=== PATIENT | female | born 1995 | race African-American/Black ===

== ENCOUNTER 2021-02-15 13:28 | Emergency (ER) | payer BC, SELFPAY ==
[2021-02-15 13:38] VITALS: BP 147/76; PULSE 90; RESP 20; TEMP 37.1; O2SAT 100
--- NOTE | 2021-02-15 13:50 | ED.GENADULT ---
HPI - General Adult General Chief complaint: Unspecified Stated complaint: poss nose broke Time Seen by Provider: 02/15/21 13:50 Source: patient Mode of arrival: ambulatory Limitations: no limitations History of Present Illness HPI narrative: 25-year-old female patient presents to the [facility] with complaints of a nasal bone injury x5 days ago. Patient states that she got hit by a door about 5 days ago and states that she initially had some bleeding from the nose. Patient states she has been putting ice on the bridge of the nose as well as taking Tylenol and ibuprofen for the pain. Patient states she continues to have swelling. Patient states she also has a injury to her middle upper lip that she has been cleaning with hydrogen peroxide and putting antibiotic ointment on it. Related Data Home Medications Medication Instructions Recorded Confirmed No Home Medications 02/15/21 02/15/21 Allergies Allergy/AdvReac Type Severity Reaction Status Date / Time Penicillins Allergy Rash Verified 02/15/21 14:02 Review of Systems Review of Systems: Narrative: CONSTITUTIONAL: Denies fever, chills, or sweats. EYES: Denies visual changes, redness, or discharge. ENT: Denies rhinorrhea, congestion, sore throat, or otalgia. Positive nasal bone trauma CARDIOVASCULAR: Denies chest pain, palpitations, or edema. RESPIRATORY: Denies cough or dyspnea. GASTROINTESTINAL: Denies abdominal pain, nausea, vomiting, or diarrhea. GENITOURINARY: Denies dysuria or hematuria. SKIN: Denies rash or itching. MUSCULOSKELETAL: Denies back pain, joint pain, or myalgia. NEUROLOGIC: Denies headache, numbness, or weakness. PSYCHIATRIC: Denies anxiety or depression. [facility] Past Medical History Medical History (Updated 02/15/21 @ 14:01 by ROSEMARY Antoine) No significant past medical history Comments At the time of my signature I agree with nursing past medical history, surgical, social, and family history. There is no relevant family history pertinent to the presenting complaint. Exam Narrative: Exam Narrative: GENERAL: Well-appearing, well-nourished, and in no acute distress. HEAD: Normocephalic, atraumatic. EYES: PERRLA and EOMI. ENT: Patient is able to breathe out of both naris. There is no hematoma present. There is a minor abrasion noted to the bridge of the nose that appears to be scabbed over and healing. No obvious septal deviation. Patient does have some tenderness noted to the bridge of the nose with some swelling present, no rhinorrhea or epistaxis. Mucous membranes moist. Patient does have a scabbed over abrasion noted to the middle of the upper lip. There is no warmth or drainage noted at this time. NECK: Supple. No lymphadenopathy CHEST: Clear to auscultation. No respiratory distress. HEART: Regular rate and rhythm. No murmur heard. Normal peripheral pulses. ABDOMEN: Soft, nontender, nondistended, normal active bowel sounds. EXTREMITIES: Normal range of motion. No edema. SKIN: Warm, dry, no rash. NEURO: No focal deficits. Alert and oriented x3. Course Vital Signs Vital signs: Vital Signs Temperature 37.1 C 02/15/21 13:38 Pulse Rate 90 02/15/21 13:38 Respiratory Rate 20 02/15/21 13:38 Blood Pressure 147/76 H 02/15/21 13:38 Pulse Oximetry 100 02/15/21 13:38 Temperature 37.1 C 02/15/21 13:38 Pulse Rate 90 02/15/21 13:38 Respiratory Rate 20 02/15/21 13:38 Blood Pressure 147/76 H 02/15/21 13:38 Pulse Oximetry 100 02/15/21 13:38 The patient has been informed that they may have pre-hypertension or Hypertension based on a BP reading in the department. I recommend that the patient call the primary care provider listed on their discharge instructions or a physician of their choice this week to arrange follow up for further evaluation of possible pre-hypertension or Hypertension Medical Decision Making Differential Diagnosis Differential Diagnosis: Differential diagnosis: Contusion of nose, nasal
[2021-02-15 13:53] VITALS: BP 147/76; PULSE 90; RESP 20; TEMP 37.1; O2SAT 100
== END 2021-02-15 14:05 | disposition home or self-care (01) ==
PROVIDERS: Emergency Provider Nurse Practitioner Family
DX: S09.92XA Unspecified injury of nose, initial encounter (principal); W22.8XXA Striking against or struck by other objects, initial encounter
CPT/HCPCS: 99202; G0463

== ENCOUNTER 2021-04-27 12:19 | Emergency (ER) | payer BC, SELFPAY ==
[2021-04-27 12:28] VITALS: BP 117/66; PULSE 66; RESP 14; TEMP 36.8; O2SAT 99
--- NOTE | 2021-04-27 12:47 | ED.URI ---
HPI - URI/Sore Throat General Chief Complaint: Upper Respiratory Infection Stated Complaint: Possible sinus and Ear infection Time Seen by Provider: 04/27/21 12:47 Source: patient, RN notes reviewed and old records reviewed Mode of arrival: ambulatory Limitations: no limitations History of Present Illness HPI Narrative: 25 year old female who presents to [facility] with 2 day history of right ear pain, sneezing, nasal congestion stuffiness and some clear nasal drainage with post nasal drainage. Patient states that ears have pressure and decrease in hearing. She reports that she put sweet oil in her right ear, and she has taken some Tussin for her nasal symptoms. Patient denies any cough, or fevers, denies any acute sore throat but states that it does feel raspy from all her drainage. Patient denies any headaches, or sinus pressure,denies any shortness of breath or any wheezing. MD elicited complaint: rhinorrhea, nasal congestion and other (ear pain) Onset (ago): day(s) (2) Consistency: progressively worsening Severity: moderate Pain scale (0-10): 6 Description of mucous: clear Able to tolerate fluids by mouth: Yes Relieving factors: nothing Associated symptoms: rhinorrhea, nasal congestion and ear pain Treatments prior to arrival: other (sweet oil and tussin OTC) Related Data Allergies Allergy/AdvReac Type Severity Reaction Status Date / Time Penicillins Allergy Rash Verified 04/27/21 12:34 Review of Systems Review of Systems: Narrative: CONSTITUTIONAL: Denies fever, chills, or sweats. EYES: Denies visual changes, redness, or discharge. ENT: positive for rhinorrhea, congestion,post nasal drainage, raspy throat,bilateral otalgia. CARDIOVASCULAR: Denies chest pain, palpitations, or edema. RESPIRATORY: Denies cough or dyspnea. GASTROINTESTINAL: Denies abdominal pain, nausea, vomiting, or diarrhea. GENITOURINARY: Denies dysuria or hematuria. SKIN: Denies rash or itching. MUSCULOSKELETAL: Denies back pain, joint pain, or myalgia. NEUROLOGIC: Denies headache, numbness, or weakness. PSYCHIATRIC:Positive history of anxiety or depression. All systems reviewed & are unremarkable except as noted in HPI and below PMFSH Past Medical History Medical History (Updated 04/29/21 @ 15:05 by Emmy Gomez NP) Anxiety Surgical History Surgical History (Updated 04/29/21 @ 15:05 by Emmy Gomez NP) No history of previous surgery Family History Family History (Updated 04/29/21 @ 15:06 by Emmy Gomez NP) Other No significant family history Social History Social History (Updated 04/29/21 @ 15:05 by Emmy Gomez NP) Smoking packs per day: 0.25 Smoking cigarettes per day: 5.0 Years smoked: 12 Smoking pack-years: 3.00 Smoking status: Current every day smoker Tobacco type: cigarettes Alcohol intake: current Substance use: never Substance use type: does not use Comments At time of signature, agree with nursing past medical, surgical, social and family history. There is no relevant family history pertinent to the presenting complaint Exam Narrative: Exam Narrative: GENERAL: Well-appearing, well-nourished, and in no acute distress. HEAD: Normocephalic, atraumatic. EYES: PERRLA and EOMI. ENT: Nares clear, clear rhinorrhea no epistaxis. Mucous membranes moist.Right and left ears had impacted cerumen with stated pain to right ear rated 6/10, ears rinsed with peroxide and water irrigation with cerumen removed completely TM's normal with no effusions or redness, canals normal with no irritation noted. Throat is red with white exudates in back of throat along with post nasal drainage, tonsils enlarged and red NECK: Supple.no lymphadenopathy CHEST: Clear to auscultation. No respiratory distress.denies any cough SAO2 99% on room air HEART: Regular rate and rhythm. No murmur heard. Normal peripheral pulses. ABDOMEN: Soft, nontender, nondistended, normal active bowel sounds. EXTREMITIES: Normal range of mot
== END 2021-04-27 13:25 | disposition home or self-care (01) ==
PROVIDERS: Emergency Provider Registered Nurse; PCP Nurse Practitioner Adult Health
DX: J03.90 Acute tonsillitis, unspecified (principal); J06.9 Acute upper respiratory infection, unspecified; H61.23 Impacted cerumen, bilateral; F17.210 Nicotine dependence, cigarettes, uncomplicated
CPT/HCPCS: 69209; 87081; 87880; 99213; G0463

== ENCOUNTER 2021-08-01 11:39 | Emergency (ER) | payer BC, SELFPAY ==
[2021-08-01 11:48] VITALS: BP 154/88; PULSE 115; RESP 20; TEMP 38; O2SAT 100
--- NOTE | 2021-08-01 11:54 | ED.EAR ---
HPI - Ear Problem General Chief complaint: Ear Stated complaint: Ear Pain/ Dizziness Time Seen by Provider: 08/01/21 11:54 Source: patient History of Present Illness HPI Narrative: patient presents with left ear pain. no drainage from ear. history of tubes as child. has not taken anything otc for pain or discomfort. requests work note. Complaint: ear pain Location: left ear Discharge from ear: Reports no Related Data Allergies Allergy/AdvReac Type Severity Reaction Status Date / Time Penicillins Allergy Intermediate Rash Verified 08/01/21 11:57 Review of Systems Review of Systems: CONSTITUTIONAL: Denies fever, chills, or sweats. EYES: Denies visual changes, redness, or discharge. ENT: Denies rhinorrhea, congestion, sore throat, complains of left ear pain CARDIOVASCULAR: Denies chest pain, palpitations, or edema. RESPIRATORY: Denies cough or dyspnea. GASTROINTESTINAL: Denies abdominal pain, nausea, vomiting, or diarrhea. GENITOURINARY: Denies dysuria or hematuria. SKIN: Denies rash or itching. MUSCULOSKELETAL: Denies back pain, joint pain, or myalgia. NEUROLOGIC: Denies headache, numbness, or weakness. PSYCHIATRIC: Denies anxiety or depression. [facility] Past Medical History Medical History (Updated 08/01/21 @ 12:04 by ROSEMARY Garza) Anxiety Surgical History Surgical History (Updated 04/29/21 @ 15:05 by Emmy Gomez NP) No history of previous surgery Family History Family History (Updated 04/29/21 @ 15:06 by Emmy Gomez NP) Other No significant family history Social History Social History (Updated 04/29/21 @ 15:05 by Emmy Gomez NP) Smoking packs per day: 0.25 Smoking cigarettes per day: 5.0 Years smoked: 12 Smoking pack-years: 3.00 Smoking status: Current every day smoker Tobacco type: cigarettes Alcohol intake: current Substance use: never Substance use type: does not use Comments At time of signature, agree with nursing past medical, surgical, social and family history. There is no relevant family history pertinent to the presenting complaint Exam Narrative: GENERAL: Well-appearing, well-nourished, and in no acute distress. HEAD: Normocephalic, atraumatic. EYES: PERRLA and EOMI. ENT: Nares clear, no rhinorrhea or epistaxis. Mucous membranes moist. Right TM intact left canal erythremia dullness to left TM NECK: Supple. CHEST: Clear to auscultation. No respiratory distress. HEART: Regular rate and rhythm. No murmur heard. Normal peripheral pulses. ABDOMEN: Soft, nontender, nondistended, normal active bowel sounds. EXTREMITIES: Normal range of motion. No edema. SKIN: Warm, dry, no rash. NEURO: No focal deficits. Alert and oriented x3. Ben Coma Scale Eye Opening: Spontaneous 4 Ben Coma Scale Motor: Obeys Commands 6 Ben Coma Scale Verbal: Oriented 5 Ben Coma Scale Total 15 Course Vital Signs Vital signs: Vital Signs Temperature 38.0 C H 08/01/21 11:48 Pulse Rate 115 H 08/01/21 11:48 Respiratory Rate 20 08/01/21 11:48 Blood Pressure 154/88 H 08/01/21 11:48 Pulse Oximetry 100 08/01/21 11:48 Temperature 38.0 C H 08/01/21 11:48 Pulse Rate 115 H 08/01/21 11:48 Respiratory Rate 20 08/01/21 11:48 Blood Pressure 154/88 H 08/01/21 11:48 Pulse Oximetry 100 08/01/21 11:48 Medical Decision Making Vital Signs Vital Signs: Vital Signs Temperature 38.0 C H 08/01/21 11:48 Pulse Rate 115 H 08/01/21 11:48 Respiratory Rate 20 08/01/21 11:48 Blood Pressure 154/88 H 08/01/21 11:48 Pulse Oximetry 100 08/01/21 11:48 Temperature 38.0 C H 08/01/21 11:48 Pulse Rate 115 H 08/01/21 11:48 Respiratory Rate 20 08/01/21 11:48 Blood Pressure 154/88 H 08/01/21 11:48 Pulse Oximetry 100 08/01/21 11:48 Addressed elevated BP today. Today's blood pressure higher than recommended range. Discussed importance of follow -up with PCP and possible senior living effects/cardiovascular events related
== END 2021-08-01 12:10 | disposition home or self-care (01) ==
PROVIDERS: Emergency Provider Nurse Practitioner Family
DX: H66.93 Otitis media, unspecified, bilateral (principal); H66.92 Otitis media, unspecified, left ear; F17.210 Nicotine dependence, cigarettes, uncomplicated
CPT/HCPCS: 99213; G0463